=== PATIENT | female | born 1980 | race Caucasian/White ===

== ENCOUNTER 2020-02-04 11:13 | Inpatient (IN) | payer OTHER ==
[~2020-02-04] VITALS: Ht 167.6 cm; Wt 71.9 kg
--- NOTE | 2020-02-04 11:33 | NUR ---
PT TO ROOM FOR EXAM
--- NOTE | 2020-02-04 11:53 | NUR ---
AFTER TRIAGE PT STATES SHE DID A COUPLE LINES OF COKE EACH NIGHT FOR THE PAIN, SO COKE MAY SHOW UP IN HER URINE SPECIMEN TOO BESIDES MARIJUANA
--- NOTE | 2020-02-04 12:01 | NUR ---
NO VOMITING SINCE ARRIVAL, PT STATES PAIN HAS DECREASED.
[2020-02-04 12:02] LABS: HEMATOCRIT 42.3 % (37.0-47.0); IMMATURE GRANULOCYTES 0.5 % (0.0-5.0); MEAN CELL VOLUME 85.8 fL CALC (80.0-100.0); MEAN CORPUSCULAR HGB 30.4 pG CALC (26.0-32.0); MEAN CORPUSCULAR HGB CONC 35.5 g/dL CAL (32.0-36.0); NEUT# 18.46 thou/uL (2.00-7.15); RED BLOOD COUNT 4.93 mill/uL (4.20-5.60); RED CELL DISTRI WIDTH 13.3 % (11.5-15.5)
[2020-02-04 12:16] LABS: ALBUMIN 4.3 g/dL (3.2-5.0); ALKALINE PHOSPHATASE 89 u/l (38-126); ANION GAP 15 (6-22 (CALC)); BILIRUBIN, TOTAL 0.9 mg/dL (0.0-1.4); BUN 10 mg/dL (7-17); BUN/CREATININE RATIO 13 (12-20 (CALC)); CARBON DIOXIDE 20 mmol/l (22-30); CHLORIDE 99 mmol/l (95-108); CREATININE 0.8 mg/dL (0.5-1.0); GFR > 60 ML/MIN (>=60 (CALC)); GFR FOR AFR.AMER. > 60 ML/MIN (>=60 (CALC)); LIPASE 24 u/l (23-300); POTASSIUM 3.1 mmol/l (3.5-5.1); SGOT/AST 23 u/l (14-36); SODIUM 132 mmol/l (137-146); TOTAL PROTEIN 7.6 g/dL (6.3-8.2)
[2020-02-04 12:23] LABS: URINE BILIRUBIN - DIPSTICK NEGATIVE (NEGATIVE); URINE BLOOD DIPSTICK LARGE (NEGATIVE); URINE COLOR YELLOW; URINE GLUCOSE - DIPSTICK NEGATIVE (NEGATIVE); URINE KETONE 40 mg/dL (NEGATIVE); URINE LEUK ESTERASE TRACE (NEGATIVE); URINE NITRITE - DIPSTICK POSITIVE (Negative); URINE PH 6.5 (4.5-8.0); URINE PROTEIN - DIPSTICK 100 mg/dL (NEG-TRACE); URINE SPECIFIC GRAVITY 1.015; URINE UROBILINOGEN - DIPSTICK >=8.0 E.U./dL (0.2)
[2020-02-04 12:37] LABS: URINE BACTERIA FEW hpf; URINE SQUAMOUS EPITHELIAL CELL FEW EPI/hpf (0-FEW)
--- NOTE | 2020-02-04 12:59 | NUR ---
APPROX 300 CC OF URINE OUTPUT
--- NOTE | 2020-02-04 13:15 | NUR ---
PT STATES PAIN IS COMING BACK, NO VOMITING SINCE ARRIVAL. NOTIFED. WAITING FOR NEW MED ORDERS.
--- NOTE | 2020-02-04 13:44 | NUR ---
PT RESTING QUIETLY ON STRETCHER, NO PAIN AT THIS TIME
--- NOTE | 2020-02-04 13:46 | NUR ---
Validation Analyst advised Milo ENRIQUEZ/Dr. Rogers of OBS status when asked to review clinicals.
--- NOTE | 2020-02-04 14:14 | NUR ---
REPORT CALLED TO FLOOR TO SVETLANA
[2020-02-04 14:22] VITALS: BP 141/98
--- NOTE | 2020-02-04 14:22 | NUR ---
PT ARRIVED TO UNIT VIA WHEELCHAIR WITH ER STAFF; ALERT AND ORIENTED. AMBULATED TO BED WITH STEADY GAIT. C/O MILD ABDOMINAL PAIN; ONCE IN BED PT EXPERIENCED WAVES OF SEVERE EPIGASTRIC PAIN WITH HIGH ANXIETY. CLUTCHING STOMACH WITH EYES WIDE AND LOUD MOANING. PT ALSO C/O NAUSEA WITH DRY HEAVES. PAIN SUBSIDED; NO STOMACH ABNORMALITIES NOTED; BS ACTIVE; PT REPORTS LAST BOWEL MOVEMENT TO BE 4 DAYS AGO WHICH IS NORMAL FOR HER BECAUSE SHE STATES THAT SHE HAS "LAZY BOWEL." SHE DENIES TAKING STOOL SOFTNERS OR STIMULANTS. RESPIRATIONS EVEN AND UNLABORED ON ROOM AIR. IV FLUIDS INFUSING WITHOUT DIFFICULTY; IV SITE APPEARS HEALTHY. ORIENTED TO ROOM AND CALL LIGHT SYSTEM. PLAN OF CARE DISCUSSED. PT ENCOURAGED TO VERBALIZE CONCERNS. STATES UNDERSTANDING. SAFETY MEASURES IN PLACE. CALL LIGHT WITHIN REACH.
--- NOTE | 2020-02-04 14:27 | NUR ---
PT TO FLOOR PER W/C
--- NOTE | 2020-02-04 14:27 | NUR ---
PT TO ROOM FOR EXAM
[2020-02-04 15:09] LABS: BARBITURATES NEGATIVE (NEGATIVE); COCAINE POSITIVE (NEGATIVE); METHADONE NEGATIVE (NEGATIVE); OXCYCODONE NEGATIVE (NEGATIVE); TETRAHYDROCANNABIONOL POSITIVE (NEGATIVE); TRICYLIC ANTIDEPRESSANTS NEGATIVE (NEGATIVE)
--- NOTE | 2020-02-04 15:20 | NUR ---
PT REQUESTED SOMETHING WARM TO EAT AFTER NAUSEA SUBSIDED; PROVIDED WITH WARM CHICKEN BROTH. IV POTASSIUM REPLACEMENT INFUSING AT THIS TIME. PT REPORTS THAT PAIN HAS IMPROVED. RESTING IN BED SEMI FOWLERS WATCHING TV.
[2020-02-04 16:10] VITALS: BP 110/71
--- NOTE | 2020-02-04 18:01 | NUR ---
PT UNABLE TO TOLERATE POTASSIUM IV; C/O SEVERE PAIN TO ARM; INFUSION RATE SLOWED, BUT PT CONTINUED TO C/O PAIN. HALF OF BAG INFUSED BEFORE BEING DISCONTINUED. MAGNESIUM REPLACEMENT NOW INFUSING.
--- NOTE | 2020-02-04 19:20 | NUR ---
REPORT FROM SVETLANA APONTE. PT NOTED SITTING UP IN BED. ALERT AND ORIENTED. NO APPARENT DISTRESS NOTED. PT C/O GENERALIZED ACHINESS AND NAUSEA. WILL MEDICATED WHEN AVAILABLE. IV SITE APPEARS HEALTHY WITH IV FLUIDS INFUSING. DISCUSSED POC. PT VERBALIZED UNDERSTANDING. CALL LIGHT WITHIN REACH. WILL CONTINUE TO MONITOR.
--- NOTE | 2020-02-04 19:51 | NUR ---
PT MEDICATED FOR NAUSEA AND GENERALIZED ACHING PAIN 5/10. ENCOURAGED REPOSITIONING. PT UP OUT OF BED AMBULATING TO BATHROOM WITH NO ASSISTANCE REQUIRED. PT BACK TO BED. CALL LIGHT WITHIN REACH. WILL CONTINUE TO MONITOR.
[2020-02-04 20:15] VITALS: BP 118/67
--- NOTE | 2020-02-05 00:31 | NUR ---
PT SITTING UP IN BED. ALERT AND ORIENTED. PT DENIES ANY PAIN OR DISCOMFORT. REQUESTING ORANGE JUICE AND ICE AT THIS TIME. NO OTHER CURRENT WANTS OR NEEDS. CALL LIGHT WITHIN REACH. WILL CONTINUE TO MONITOR.
--- NOTE | 2020-02-05 01:22 | NUR ---
PT VOMITING. PT STATES SHE DRANK TO MUCH JUICE. MEDICATED WITH IV ZOFRAN AT THIS TIME. WILL CONTINUE TO MONITOR.
[2020-02-05 04:46] LABS: IMMATURE GRANULOCYTES 0.5 % (0.0-5.0); MEAN CELL VOLUME 88.3 fL CALC (80.0-100.0); MEAN CORPUSCULAR HGB 30.6 pG CALC (26.0-32.0); MEAN CORPUSCULAR HGB CONC 34.7 g/dL CAL (32.0-36.0); NEUT# 7.21 thou/uL (2.00-7.15); RED BLOOD COUNT 3.92 mill/uL (4.20-5.60); RED CELL DISTRI WIDTH 13.6 % (11.5-15.5)
[2020-02-05 04:48] LABS: HEMATOCRIT 34.6 % (37.0-47.0)
[2020-02-05 04:59] LABS: ALKALINE PHOSPHATASE 111 u/l (38-126); ANION GAP 8 (6-22 (CALC)); BILIRUBIN, TOTAL 0.7 mg/dL (0.0-1.4); BUN 10 mg/dL (7-17); BUN/CREATININE RATIO 15 (12-20 (CALC)); CARBON DIOXIDE 23 mmol/l (22-30); CHLORIDE 105 mmol/l (95-108); CREATININE 0.7 mg/dL (0.5-1.0); GFR > 60 ML/MIN (>=60 (CALC)); GFR FOR AFR.AMER. > 60 ML/MIN (>=60 (CALC)); POTASSIUM 3.4 mmol/l (3.5-5.1); SODIUM 133 mmol/l (137-146)
--- NOTE | 2020-02-05 05:01 | NUR ---
PT MEDICATED FOR NAUSEA AT THIS TIME. PT VERY EMOTIONAL AT THIS TIME. GEODETIC SURVEYOR TECHNOLOGIST OFFERED CALM REASSURANCE. WILL CONTINUE TO MONITOR.
[2020-02-05 05:07] LABS: ALBUMIN 2.7 g/dL (3.2-5.0); MAGNESIUM 2.1 mg/dL (1.6-2.3); SGOT/AST 61 u/l (14-36); TOTAL PROTEIN 5.2 g/dL (6.3-8.2)
[2020-02-05 05:35] VITALS: BP 106/67
--- NOTE | 2020-02-05 07:47 | NUR ---
PT USED CALL LIGHT; VERY TEARFUL AND ANXIOUS. STATES THAT SHE HASNT EATEN IN DAYS AND WANTS SOME TOAST AND EVERYTHING SHE IS SERVED IS SWEET. DECLINES CREAM SOUP ON BREAKFAST TRAY. CHICKEN BROTH PROVIDED. PT DENIES PAIN AND NAUSEA. PT STATES WITH EXASPERATION, "I AM JUST WEAK, AND TIRED, AND I HAVEN'T SLEPT." TEMP 100.4; FACIAL FLUSHING. PT IS CALMER AFTER COMMUNICATION.
[2020-02-05 08:00] VITALS: BP 117/77
--- NOTE | 2020-02-05 08:20 | NUR ---
ZOFRAN GIVEN AT THIS TIME FOR C/O NAUSA AND DRY HEAVES. DRY COUGH PRELUDES DRY HEAVES; PT STATE IT IS FROM GAGGING. PT AGAIN BEGINS TO CRY STATING, "CAN'T THEY ORDER ME SOMETHING TO SLEEP? I JUST WANT TO SLEEP!" RELAXATION TECHNIQUES ENCOURAGED AND DEEP BREATHING.
--- NOTE | 2020-02-05 08:45 | NUR ---
PT MORE RELAXED AND RESTING WITH EYES CLOSED IN SEMI FOWLERS. TEMPERATURE INCREASED TO 101.1; TYLENOL GIVEN AND ROOM COOLED. ROCEPHIN INFUSING AT THIS TIME.
--- NOTE | 2020-02-05 09:55 | NUR ---
TEMPERATURE DECREASED TO 98.4. PT RESTING QUIETLY WITH NO SIGNS OF DISTRESS.
--- NOTE | 2020-02-05 10:31 | NUR ---
UP TO SHOWER WITH BED CHANGE. NOW SITTING UP CROSS LEGGED IN BED REQUESTING CHICKEN BROTH.
[2020-02-05 15:20] VITALS: BP 112/84
--- NOTE | 2020-02-05 15:27 | NUR ---
ZOFRAN GIVEN FOR NAUSEA. PT AMBULATING TO BATHROOM INDEPENDENLTY. DENIES PAIN AT THIS TIME.
--- NOTE | 2020-02-05 16:11 | NUR ---
PT USED CALL LIGHT TO REPORT INCREASED CHILLS AND FEELING POORLY. TEMP 100.6; TYLENOL ADMINISTERED.
--- NOTE | 2020-02-05 19:00 | NUR ---
REPORT FROM SVETLANA APONTE. PT NOTED SITTING UP IN BED. ALERT AND ORIENTED. NO APPARENT DISTRESS NOTED. DENIES ANY PAIN OR NAUSEA. IV SITE APPEARS HEALTHY WITH IV FLUIDS INFUSING. DISCUSSED POC. PT VERBALIZED UNDERSTANDING. CALL LIGHT WITHIN REACH. WILL CONTINUE TO MONITOR.
[2020-02-05 19:18] VITALS: BP 119/79
--- NOTE | 2020-02-05 20:22 | NUR ---
PT REQUESTING SOMETHING FOR SLEEP. PT DENIES ANY PAIN OR NAUSEA AT THIS TIME. LAYBOY OPERATOR PHYSICIAN NOTIFIED ORDERS RECEIVED. WILL MEDICATED WHEN AVAILABLE.
--- NOTE | 2020-02-05 20:47 | NUR ---
PT BECAME NAUSEATED, DRY HEANGELA NOTED. PT MEDICATED WITH PRN ZOFRAN AT THIS TIME. WILL HOLD SLEEPING PILL UNTIL NAUSEA HAS SUBSIDED. PT VERBALIZED UNDERSTANDING. WILL CONTINUE TO MONITOR.
--- NOTE | 2020-02-06 00:09 | NUR ---
PT VERY ANXIOUS, CRYING, AND NAUSEATED AT THIS TIME. PT MEDICATED FOR PAIN AND NAUSEA. DRY HEAVING, WET WASH CLOTH PROVIDED. LOW GRADE TEMP NOTED 99.0. ENCOURGAED TO TAKES SOME DEEP BREATHS AND RELAX SINCE MEDICATED. STRETCHING MACHINE TENDER FRAME REMAINS IN ROOM FOR SEVERAL MINUTES TALKING WITH PT, OFFERED CALM REASSURANCE, WITH EFFECT. PT DENIES ANY FURTHER WANTS OR NEEDS. CALL LIGHT WITHIN REACH. PT INSTRUCTED TO CALL FOR ANY NEEDS. WILL CONTINUE TO MONITOR.
--- NOTE | 2020-02-06 03:22 | NUR ---
PT RESTING IN BED WITH EYES CLOSED. NO APPARENT DISTRESS NOTED. CALL LIGHT WITHIN REACH. WILL CONTINUE TO MONITOR.
[2020-02-06 04:42] LABS: HEMATOCRIT 31.3 % (37.0-47.0); HEMOGLOBIN 10.6 g/dl (12.0-16.0); MEAN CELL VOLUME 88.9 fL CALC (80.0-100.0); MEAN CORPUSCULAR HGB 30.1 pG CALC (26.0-32.0); MEAN CORPUSCULAR HGB CONC 33.9 g/dL CAL (32.0-36.0); RED BLOOD COUNT 3.52 mill/uL (4.20-5.60); RED CELL DISTRI WIDTH 13.9 % (11.5-15.5)
[2020-02-06 05:02] LABS: ANION GAP 8 (6-22 (CALC)); BUN 5 mg/dL (7-17); BUN/CREATININE RATIO 7 (12-20 (CALC)); CARBON DIOXIDE 22 mmol/l (22-30); CHLORIDE 109 mmol/l (95-108); CREATININE 0.7 mg/dL (0.5-1.0); GFR > 60 ML/MIN (>=60 (CALC)); GFR FOR AFR.AMER. > 60 ML/MIN (>=60 (CALC)); POTASSIUM 3.5 mmol/l (3.5-5.1); SODIUM 135 mmol/l (137-146)
[2020-02-06 05:04] VITALS: BP 101/73
--- NOTE | 2020-02-06 07:10 | NUR ---
REPORT RECEIVED FROM EVETTE SHELTON;PT APPEARS TO BE SLEEPING IN SUPINE POSITION;NO S/S OF DISTRESS NOTED;RESPIRATIONS EVEN AND UNLABORED ON RA;IV FLUIDS INFUSING WITH EASE PER ORDER;ALL SAFETY PRECAUTIONS IN PLACE WITH BED IN THE LOWEST POSITION AND CALL LIGHT IN REACH;WILL CONTINUE TO MONITOR
[2020-02-06 08:00] VITALS: BP 126/81
--- NOTE | 2020-02-06 08:28 | NUR ---
INTRODUCED SELF TO PT AND DISCUSSED POC. ASSESMENT COMPLETE AND VITAL SIGNS OBTAINED.BP 126/81, HR 76, O2 98% ROOM AIR.HEART RHYTHM NORMAL, LUNG SOUNDS CLEAR, AND BOWEL SOUNDS ACTIVE IN ALL QUADRANTS. PEDAL AND RADIAL PULSES STRONG WITH NORMAL CAPILLARY REFILLS. NO EDEMA OR DISCOLORATION OF THE SKIN. IV RUNNING AT 125ML IN THE RIGHT AC, SITE APPEARS HEALTHY AND PATENT. PT DESCRIBES A EPIGASTIC PESSURED RATED 3/10 BUT NO NAUSEA. PT IS A/O AND AMBULATORY. PT DENIES ANY OTHER DISCOMFORTS OR PAIN AT THIS TIME. ALL SAFTEY PERCAUTIONS IN PLACE WITH CALL LIGHT AND PHONE IN REACH. WILL CONTINUE TO MONITOR
--- NOTE | 2020-02-06 11:05 | NUR ---
AT BEDSIDE DISCUSSING POC INCLUDING PLANS FOR POSSIBLE D/C.
--- NOTE | 2020-02-06 12:03 | NUR ---
PT RESTING BED EATING LUNCH. BREATHING IS EVEN AND UNLABORED ON ROOM AIR . IV RUNNING AT 125 ML, SITE APPEARS HEALTHY AND PATENT. PT DENIES ANY PAIN OR DISCOMFORTS AT THIS TIME. ALL SAFTEY PERCAUTIONS IN PLACE WITH THE CALL LIGHT IN REACH. WILL CONTINUE TO MONITOR.
[2020-02-06 15:40] VITALS: BP 114/86
--- NOTE | 2020-02-06 15:52 | NUR ---
PT RESTING IN SEMI FOWLERS POSITION WATCHING TV. BREATHING IS EVEN AND UNLABORED ON ROOM AIR.IV RUNNING AT 125 ML ORDERED, SITE APPEARS HEALTHY AND PATENT. PT DENIES ANY PAIN OR DISCOMFORTS AT THIS TIME. ALL SAFTEY PRECAUTIONS IN PLACE WITH CALL LIGHT IN REACH.WILL CONTINUE TO MONITOR
--- NOTE | 2020-02-06 18:33 | NUR ---
PT SITTING IN BED TALKING ON THE PHONE. BREATHING IS EVEN AND UNLABORED ON ROOM AIR. IV RUNNING AT 125 ML NS ORDERED, SITE APPEARS HEALTHY AND PATENT. PT DENIES ANY PAIN OR DISCOMFORTS AT THIS TIME. ALL SAFTEY PRECAUTIONS IN PLACE WITH CALL LIGHT IN REACH. WILL CONTINUE TO MONITOR
--- NOTE | 2020-02-06 19:02 | NUR ---
REPORT FROM TISH ALAS. PT NOTED SITTING UP IN BED. ALERT AND ORIENTED. NO APPARENT DISTRESS NOTED. DENIES ANY PAIN OR NAUSEA. IV SITE APPEARS HEALTHY WITH IV FLUIDS INFUSING. DISCUSSED POC. PT VERBALIZED UNDERSTANDING. CALL LIGHT WITHIN REACH. WILL CONTINUE TO MONITOR.
[2020-02-06 19:45] VITALS: BP 121/85
--- NOTE | 2020-02-06 21:48 | NUR ---
EXTRA PILLOWS AND CRANBERRY JUICE PROVIDED UPON REQUEST. NO APPARENT DISTRESS NOTED. PT DENIES ANY OTHER WANTS OR NEEDS. CALL LIGHT WITHIN REACH. WILL CONTINUE TO MONITOR.
--- NOTE | 2020-02-07 00:07 | NUR ---
PT RESTING IN BED WITH EYES CLOSED. PT WAKES EASILY. NO APPARENT DISTRESS NOTED. PT DENIES ANY PAIN OR DISCOMFORT. CALL LIGHT WITHIN REACH. WILL CONTINUE TO MONITOR.
[2020-02-07 04:10] VITALS: BP 137/83
--- NOTE | 2020-02-07 07:15 | NUR ---
change of shift report received from EVETTE Ayoub. Pt in room in supine position. pt with sad facial expression. therapuetic listening provide. pt is able to verbalize feelings. process description writer will continue to monitor.
[2020-02-07 08:15] VITALS: BP 122/69
[2020-02-07] MEDS ORDERED: CIPROFLOXACN500 MG PO (10:04)
--- NOTE | 2020-02-07 11:45 | NUR ---
Discharge instructions given. Patient verbalizes understanding of same. Discharged in good condition via Ambulatory to Home with friend. All belongings sent with pt.
== END 2020-02-07 11:44 | disposition home or self-care (01) | DRG 690 ==
LOC: ED 11:13 → ED-I 13:10 → ED 13:22 → ED-I 13:23 → MS2 13:48
PROVIDERS: Family Medicine; Nurse Practitioner Family; ADMIT Internal Medicine; ATTEND Internal Medicine
DX: N12 Tubulo-interstitial nephritis, not specified as acute or chronic (principal); R78.81 Bacteremia; E87.6 Hypokalemia; E83.42 Hypomagnesemia; F14.10 Cocaine abuse, uncomplicated; F12.10 Cannabis abuse, uncomplicated; F17.210 Nicotine dependence, cigarettes, uncomplicated; B96.20 Unspecified Escherichia coli [E. coli] as the cause of diseases classified elsewhere; Z87.440 Personal history of urinary (tract) infections
CPT/HCPCS: J3475; Q9967